=== PATIENT | male | born 1995 | race Caucasian/White ===

== ENCOUNTER 2019-02-10 21:04 | Emergency (ER) | payer SELFPAY ==
--- NOTE | 2019-02-10 21:51 | RAD ---
FXR Elbow Lt 4 View: 02/10/2019 9:12 PM CLINICAL INDICATION: Pain and deformity of left elbow COMPARISON: None. FINDINGS: Fracture:There is subtle osseous fragmentation projecting over the coronoid process and located just dorsal to the distal aspect of the humerus. There is posterior and lateral dislocation of the radius and ulna. There is soft tissue swelling. IMPRESSION: 1. Dislocation at the level of the left elbow, with suggestion of associated small avulsion fracture. Recommend orthopedic consultation.
[2019-02-10] MEDS ORDERED: Ketamine 50 MG/ML (10ML VIAL) ONE (22:24)
[2019-02-10] MEDS ORDERED: Ondansetron PF 4 MG/2 ML Vial ONE (22:39)
--- NOTE | 2019-02-10 23:07 | RAD ---
F2 view left elbow Clinical history post reduction FINDINGS: There is overlying splint, limiting detail. On the 2 provided views, alignment is near-yudith omic. No additional significant interval change. IMPRESSIONS: Splinted left elbow revealing near-anatomic alignment. Detail is limited by overlying ar tifact from splint. Follow-up imaging upon spot removal is recommended to exclude possibility of frac ture, as preceding exam did reveal findings which were concerning for small avulsion injury.
[2019-02-11] MEDS ORDERED: Ondansetron ODT 4 MG TAB ONE (00:32)
== END 2019-02-11 00:41 | disposition home or self-care (01) ==
LOC: ERS 21:04
DX: S53.125A Posterior dislocation of left ulnohumeral joint, initial encounter (principal); X58.XXXA Exposure to other specified factors, initial encounter
CPT/HCPCS: 24600; 96361; 96374; J2405; Q0162